=== PATIENT | female | born 1930 | race African-American/Black ===

== ENCOUNTER 2018-08-16 16:53 | Emergency (ER) | payer MEDICARE ==
[~2018-08-16] VITALS: Ht 167.6 cm; Wt 58.1 kg
[2018-08-16 17:00] VITALS: BP 162/70
--- NOTE | 2018-08-16 17:33 | PHYS DOC ---
Adult General Chief Complaint Chief Complaint: MULTIPLE COMPLAINTS HPI HPI Patient is an 88 year old female who presents with several complaints. #1. Continued frequency and urgency. Patient was seen 2 days ago and started on nitrofurantoin for urinary tract infection at an outlying clinic. Patient reports that she is doing a little bit better but continues to have to go frequently. Nothing seems to make this better or worse. #2. Occasional right posterior thigh pain. Patient describes it as achy. No trauma. Patient is able to ambulate. Nothing seems to make it worse. Improves with Tylenol No. 3. Discomfort is mild at worst and nonexistent currently. Patient denies any swelling. Patient reports that her pants as well as her nylons go on without any new difficulties. #3. Dizziness. She describes a rotational dizziness only when she goes to the back door to let in family members. This does not happen with any other exertion , change in position, or head movements. Patient denies any chest pain or palpitations. Patient reports that last just a couple of minutes and goes away. There is no tinnitus, no drainage from the ears. There is no headache. No change in vision. [] Review of Systems Review of Systems Constitutional: Denies fever or chills [] Eyes: Denies change in visual acuity, redness, or eye pain [] HENT: Denies nasal congestion or sore throat [] Respiratory: Denies cough or shortness of breath [] Cardiovascular: No chest pain or palpitations[] GI: Denies abdominal pain, nausea, vomiting, bloody stools or diarrhea [] : See history of present illness[] Musculoskeletal: See history of present illness[] Integument: Denies rash or skin lesions [] Neurologic: Denies headache, focal weakness or sensory changes [] Endocrine: Denies polyuria or polydipsia [] All other systems were reviewed and found to be within normal limits, except as documented in this note. Physical Exam Physical Exam Constitutional: Well developed, well nourished, no acute distress, non-toxic appearance. [] HENT: Normocephalic, atraumatic, bilateral external ears normal, oropharynx moist, no oral exudates, nose normal. [] Eyes: PERRLA, EOMI, conjunctiva normal, no discharge. [] Neck: Normal range of motion, no tenderness, supple, no stridor. [] Cardiovascular:Heart rate regular rhythm, no murmur [] Lungs & Thorax: Bilateral breath sounds clear to auscultation [] Abdomen: Bowel sounds normal, soft, no tenderness, no masses, no pulsatile masses. [] Skin: Warm, dry, no erythema, no rash. [] Back: No tenderness, no CVA tenderness. [] Extremities: No tenderness, no cyanosis, no clubbing, ROM intact, no edema. Patient's right thigh has no tenderness, no spasm, no hip or knee tenderness, and no edema. [] Neurologic: Alert and oriented X 3, normal motor function, normal sensory function, no focal deficits noted. Hallpike maneuvers were performed and were negative either for nystagmus or symptoms.[] Psychologic: Affect normal, judgement normal, mood normal. [] EKG EKG Sinus rhythm, rate 61, normal axis, no ST elevations or depressions.[] Radiology/Procedures Radiology/Procedures [] Impressions: Examination: CT HEAD WO CONTRAST History: DIZZINESS Comparison/Correlation: None Findings: Axial images of the head were obtained without contrast. Atrophy is present. No intracranial hemorrhage, midline shift, or mass effect. Opacification of the left external auditory canal probably is due to cerumen. Degenerative space narrowing of the lower cervical spine. Deformity of the medial finley of maxillary sinuses noted. Correlate with surgical history. No depressed fracture. Impression: No intracranial hemorrhage. Electronically signed by: John Hebert MD (08/16/2018 5:48 PM) [facility] DICTATED AND SIGNED BY: JOHN HEBERT MD DATE: 08/16/18 6182 CC: KARAN VELASCO DO; CURT KAMINSKI Course & Med Decision Making Course & Med Decision Making Pertinent Labs and Imaging studies reviewed. (See chart for details) ED course: Patient arrived, was placed in bed, in tolerated exam well. Patient care endorsed to the oncoming physician at 1800 with labs and imaging studies pending. The patient's head CT is negative for acute findings. The patient's urinalysis is still significant for UTI. She is only had 3 doses of Macrobid. I will give her 1 g of Rocephin in the ED. Creatinine is 1.5. Her labs are significant for a slightly elevated troponin of 0.033 no previous for comparison. She also has a pro BNP of 900. Again had no previous for comparison. Patient denies any chest discomfort. I advised the patient would be best if she was admitted to the hospital for trending of her troponins and further evaluation of her elevated proBNP if warranted. Patient refused admission. She wants to go home. I explained that the risks including heart attack and/or . She stated verbal understanding of these risks. Her family who accompanies her also acknowledged these risks. The patient would still prefer to go home and follow-up labs in the morning. She will be staying with family tonight and will return to emergency room if she develops worsening symptoms or any new symptoms. I have advised she continue her Macrobid as previously prescribed. She will be discharged[] Dragon Disclaimer Dragon Disclaimer This electronic medical record was generated, in whole or in part, using a voice recognition dictation system. Departure Departure: Impression: Primary Impression: UTI (urinary tract infection) Additional Impression: Elevated troponin Disposition: 01 HOME, SELF-CARE Condition: GUARDED Referrals: CURT KAMINSKI (PCP) Patient Instructions: Chest Pain (Nonspecific), [id number] Scripts Tramadol Hcl (TRAMADOL HCL) 50 Mg Tablet 50 MG PO PRN Q6HRS PRN for PAIN, #10 TAB Prov: ALEXANDRA BECKER DO 08/16/18 Problem Qualifiers KARAN VELASCO DO Aug 16, 2018 17:33 ALEXANDRA BECKER DO Aug 16, 2018 18:11
--- NOTE | 2018-08-16 17:53 | RAD ---
Examination: CT HEAD WO CONTRAST History: DIZZINESS Comparison/Correlation: None Findings: Axial images of the head were obtained without contrast. Atrophy is present. No intracranial hemorrhage, midline shift, or mass effect. Opacification of the left external auditory canal probably is due to cerumen. Degenerative space narrowing of the lower cervical spine. Deformity of the medial finley of maxillary sinuses noted. Correlate with surgical history. No depressed fracture. Impression: No intracranial hemorrhage. Electronically signed by: John Bautista MD (08/16/2018 5:48 PM) [facility]
[2018-08-16 17:59] LABS: BILIRUBIN,URINE NEG (NEG); CLARITY,URINE TURBID; COLOR,URINE YELLOW; GLUCOSE,URINE NEG (NEG); NITRITE,URINE POS (NEG); UROBILINOGEN,URINE 0.2 mg/dL (0.2 mg/dL)
[2018-08-16 18:00] LABS: BACTERIA,URINE MANY /HPF (0-FEW); SQUAMOUS EPITHELIAL CELL,UR OCC /LPF; WBC,URINE TNTC /HPF (0-4)
[2018-08-16] MEDS ORDERED: IV NORMAL SALINE 50ML 50 ML ONE (18:21)
[2018-08-16] MEDS ORDERED: cefTRIAXone SODIUM 1 GM VIAL IV ONE (18:21)
[2018-08-16 19:18] LABS: BASO % 1 % (0-3); EOS # 0.1 x10^3/uL (0.0-0.7); EOS % 1 % (0-3); HEMATOCRIT 30.2 % (36.0-47.0); HEMOGLOBIN 9.7 g/dL (12.0-15.5); LYMPH # 0.8 x10^3/uL (1.0-4.8); LYMPH % 16 % (24-48); MEAN CORPUSCULAR HEMOGLOBIN 30 pg (25-35); MEAN CORPUSCULAR HGB CONC 32 g/dL (31-37); MEAN CORPUSCULAR VOLUME 94 fL (79-100); MONO # 0.6 x10^3/uL (0.0-1.1); MONO % 12 % (0-9); NEUT # 3.5 x10^3uL (1.8-7.7); NEUT % 70 % (31-73); PLATELET COUNT 193 x10^3/uL (140-400); RED BLOOD COUNT 3.21 x10^6/uL (3.50-5.40); WHITE BLOOD COUNT 5.1 x10^3/uL (4.0-11.0)
[2018-08-16] MEDS ORDERED: traMADol 50 MG TABLET PO ONE (19:30)
[2018-08-16 19:37] LABS: ALBUMIN 3.5 g/dL (3.4-5.0); ALBUMIN/GLOBULIN RATIO 0.9 (1.0-1.7); CALCIUM 9.2 mg/dL (8.5-10.1); CREATININE 1.5 mg/dL (0.6-1.0); GFR 32.8; MAGNESIUM 2.1 mg/dL (1.8-2.4); POTASSIUM 3.2 mmol/L (3.5-5.1); TOTAL BILIRUBIN 1.2 mg/dL (0.2-1.0); TOTAL PROTEIN 7.3 g/dL (6.4-8.2)
[2018-08-16] MEDS ORDERED: TRAM50TA PO (20:25)
--- NOTE | 2018-08-18 16:01 | EKG ---
[address] [address] Test Date: 2018-08-16 Test Time: 17:47:20 Pat Name: CYNTHIA WRIGHT Department: Room: Gender: F [employer]: MALKA : 1930 Requested By: KARAN VELASCO Order Number: [id number] Reading MD: Measurements Intervals [place] Rate: 61 P: 0 WA: 138 QRS: 49 QRSD: 90 T: 102 QT: 426 QTc: 430 Interpretive Statements SINUS RHYTHM QRS(T) CONTOUR ABNORMALITY CONSIDER ANTEROLATERAL MYOCARDIAL DAMAGE CONSIDER INFERIOR MYOCARDIAL DAMAGE POSSIBLY ABNORMAL ECG RI6.01 Unconfirmed report No previous ECG available for comparison
== END 2018-08-16 20:35 | disposition home or self-care (01) ==
LOC: ER 16:53
DX: N39.0 Urinary tract infection, site not specified (principal); R79.89 Other specified abnormal findings of blood chemistry; R42 Dizziness and giddiness; M79.651 Pain in right thigh
CPT/HCPCS: 36415; 70450; 80053; 81001; 83735; 83880; 84484; 85025; 85610; 87086; 93005; 96365; 99284; J0696

== ENCOUNTER 2018-08-21 11:04 | Inpatient (IN) | payer MEDICARE ==
[~2018-08-21] VITALS: Ht 167.6 cm; Wt 56.8 kg
[~2018-08-21 11:04] MED LIST: TRAM50TA PO
[2018-08-21] MEDS ORDERED: POTASSIUM CL 40MEQ IN 0.9%NACL 1,000 ML IV ONE (11:30)
[2018-08-21] MEDS ORDERED: IV NORMAL SALINE 1,000ML 1,000 ML IV ONE (11:30)
--- NOTE | 2018-08-21 12:03 | PHYS DOC ---
Past History Past Medical History: Hypertension Past Surgical History: No Surgical History Alcohol Use: None Drug Use: None Adult General Chief Complaint Chief Complaint: SYNCOPE HPI HPI 88-year-old female presents with syncopal episode. The patient had a short syncopal episode at home today when she was getting ready to go to her doctor's appointment for follow-up of UTI from last week. She was a bit wobbly walking across the house and her son stepped up to support her. She had a short episode of syncope that lasted less than 5 seconds. She had an additional syncopal episode at her physician's office today. She did [id number] blood work that showed a creatinine of 1.5 and a potassium of 2.7. The patient was recently in this emergency for UTI symptoms and dizziness. She refused to be admitted at that time. Patient has not had fever or chills at home. Review of Systems Review of Systems Constitutional: Denies fever or chills [] Eyes: Denies change in visual acuity, redness, or eye pain [] HENT: Denies nasal congestion or sore throat [] Respiratory: Denies cough or shortness of breath [] Cardiovascular: No additional information not addressed in HPI [] GI: Denies abdominal pain, nausea, vomiting, bloody stools or diarrhea [] : Denies dysuria or hematuria [] Musculoskeletal: Denies back pain or joint pain [] Integument: Denies rash or skin lesions [] Neurologic: Denies headache, focal weakness or sensory changes. Syncope[] Endocrine: Denies polyuria or polydipsia [] All other systems were reviewed and found to be within normal limits, except as documented in this note. Current Medications Current Medications Current Medications Medications (Trade) Dose Ordered Sig/Pricilla Start Time Stop Time Status Last Admin Dose Admin Potassium Chloride/Sodium Chloride 1,000 ml @ 200 mls/hr 1X ONCE 08/21/18 11:30 08/21/18 16:29 Sodium Chloride 1,000 ml @ 1,000 mls/hr 1X ONCE 08/21/18 11:30 08/21/18 12:29 Allergies Allergies Allergies Coded Allergies Type Severity Reaction Last Updated Verified No Known Drug Allergies 08/16/18 No Physical Exam Physical Exam Constitutional: Well developed, well nourished, no acute distress, non-toxic appearance. [] HENT: Normocephalic, atraumatic, bilateral external ears normal, oropharynx moist, no oral exudates, nose normal. [] Eyes: PERRLA, EOMI, conjunctiva normal, no discharge. [] Neck: Normal range of motion, no tenderness, supple, no stridor. [] Cardiovascular:Heart rate regular rhythm, no murmur [] Lungs & Thorax: Bilateral breath sounds clear to auscultation [] Abdomen: Bowel sounds normal, soft, no tenderness, no masses, no pulsatile masses. [] Skin: Warm, dry, no erythema, no rash. [] Back: No tenderness, no CVA tenderness. [] Extremities: No tenderness, no cyanosis, no clubbing, ROM intact, no edema. [] Neurologic: Alert and oriented X 3, normal motor function, normal sensory function, no focal deficits noted. [] Psychologic: Affect normal, judgement normal, mood normal. [] Current Patient Data Vital Signs Vital Signs Date Time Temp Pulse Resp B/P (MAP) Pulse Ox O2 Delivery O2 Flow Rate FiO2 08/21/18 11:25 97.5 62 16 100 Room Air EKG EKG Sinus rhythm, rate 62, normal axis, no ST elevations or depressions, flattened T waves.[] Radiology/Procedures Radiology/Procedures [] Impressions: CT HEAD INDICATION: Dizziness COMPARISON: 08/16/2018 Exposure: One or more of the following individualized dose reduction techniques were utilized for this examination: 1. Automated exposure control 2. Adjustment of the mA and/or kV according to patient size 3. Use of iterative reconstruction technique TECHNIQUE: 5 mm contiguous axial images were obtained from the skull base to the vertex in both bone and soft tissue algorithm. FINDINGS: No abnormal attenuation within the brain parenchyma. No evidence of acute intracranial hemorrhage. No extra-axial fluid collections. No mass effect or midline shift. Ventricular size is appropriate. Basal cisterns are patent. No fractures identified.Lawler-white differentiation is preserved.Globes and orbits are within normal limits. Paranasal sinuses and mastoid air cells are clear. IMPRESSION: No acute intracranial findings. Electronically signed by: Wayne Silva MD (08/21/2018 12:04 PM) [facility] DICTATED AND SIGNED BY: WAYNE SILVA MD DATE: 08/21/18 1201 CC: ALEXANDRA BECKER DO; ADE MARTINEZ MD Examination: CHEST AP ONLY History: SYNCOPE, DIZZINESS Comparison/Correlation: None Findings: AP view of the chest was provided. Heart size and pulmonary vasculature are normal. No infiltrate or effusion. Calcified granulomas involve the right upper lung field. No pneumothorax. Levo convexity of the lower thoracic spine noted. Impression: No infiltrate. Electronically signed by: John Hebert MD (08/21/2018 12:18 PM) [id number] DICTATED AND SIGNED BY: JOHN HEBERT MD DATE: 08/21/18 1217 CC: ALEXANDRA BECKER DO; ADE MARTINEZ MD Course & Med Decision Making Course & Med Decision Making Pertinent Labs and Imaging studies reviewed. (See chart for details) The patient's labs are unremarkable except for an elevated creatinine 1.4. Her potassium here was normal at 3.8. Her head CT is unremarkable. Her blood pressure has been stable the ED. Her EKG is unremarkable. I discussed the patient with the hospitalist, Dr. Rogers and he is agreed to admit the patient for further syncopal workup. The patient was reluctant, but agreed to admission. [] Dragon Disclaimer Dragon Disclaimer This electronic medical record was generated, in whole or in part, using a voice recognition dictation system. Departure Departure: Impression: Primary Impression: Syncope Disposition: 09 ADMITTED INPATIENT Admitting Physician: Joanne Rogers Referrals: ADE MARTINEZ MD (PCP) Problem Qualifiers Primary Impression: Syncope Syncope type: unspecified Qualified Codes: R55 - Syncope and collapse ALEXANDRA BECKER DO Aug 21, 2018 12:03
[2018-08-21 12:04] LABS: BASO # 0.1 x10^3/uL (0.0-0.2); BASO % 2 % (0-3); EOS % 1 % (0-3); HEMATOCRIT 33.4 % (36.0-47.0); HEMOGLOBIN 10.8 g/dL (12.0-15.5); LYMPH # 0.5 x10^3/uL (1.0-4.8); LYMPH % 11 % (24-48); MEAN CORPUSCULAR HEMOGLOBIN 30 pg (25-35); MEAN CORPUSCULAR HGB CONC 32 g/dL (31-37); MEAN CORPUSCULAR VOLUME 93 fL (79-100); MONO # 0.5 x10^3/uL (0.0-1.1); MONO % 11 % (0-9); NEUT # 3.4 x10^3uL (1.8-7.7); NEUT % 75 % (31-73); PLATELET COUNT 264 x10^3/uL (140-400); RED BLOOD COUNT 3.58 x10^6/uL (3.50-5.40); RED CELL DISTRIBUTION WIDTH 14.7 % (11.5-14.5); WHITE BLOOD COUNT 4.5 x10^3/uL (4.0-11.0)
--- NOTE | 2018-08-21 12:08 | RAD ---
CT HEAD INDICATION: Dizziness COMPARISON: 08/16/2018 Exposure: One or more of the following individualized dose reduction techniques were utilized for this examination: 1. Automated exposure control 2. Adjustment of the mA and/or kV according to patient size 3. Use of iterative reconstruction technique TECHNIQUE: 5 mm contiguous axial images were obtained from the skull base to the vertex in both bone and soft tissue algorithm. FINDINGS: No abnormal attenuation within the brain parenchyma. No evidence of acute intracranial hemorrhage. No extra-axial fluid collections. No mass effect or midline shift. Ventricular size is appropriate. Basal cisterns are patent. No fractures identified.Lawler-white differentiation is preserved.Globes and orbits are within normal limits. Paranasal sinuses and mastoid air cells are clear. IMPRESSION: No acute intracranial findings. Electronically signed by: Wayne Silva MD (08/21/2018 12:04 PM) [place] [id number]
[2018-08-21 12:16] LABS: ALBUMIN 3.8 g/dL (3.4-5.0); CALCIUM 9.7 mg/dL (8.5-10.1); CREATININE 1.4 mg/dL (0.6-1.0); MAGNESIUM 2.4 mg/dL (1.8-2.4); POTASSIUM 3.8 mmol/L (3.5-5.1); TOTAL BILIRUBIN 0.6 mg/dL (0.2-1.0); TOTAL PROTEIN 7.8 g/dL (6.4-8.2)
--- NOTE | 2018-08-21 12:23 | RAD ---
Examination: CHEST AP ONLY History: SYNCOPE, DIZZINESS Comparison/Correlation: None Findings: AP view of the chest was provided. Heart size and pulmonary vasculature are normal. No infiltrate or effusion. Calcified granulomas involve the right upper lung field. No pneumothorax. Levo convexity of the lower thoracic spine noted. Impression: No infiltrate. Electronically signed by: John Bautista MD (08/21/2018 12:18 PM) [id number]
[2018-08-21 13:21] LABS: CLARITY,URINE HAZY; COLOR,URINE ORANGE
[2018-08-21 13:22] LABS: BILIRUBIN,URINE NEG (NEG)
[2018-08-21 13:24] LABS: BACTERIA,URINE FEW /HPF (0-FEW); SQUAMOUS EPITHELIAL CELL,UR FEW /LPF
[2018-08-21 15:34] VITALS: BP 181/73
[2018-08-21 16:34] LABS: CREATININE 1.2 mg/dL (0.6-1.0); GFR 51.4; POTASSIUM 3.1 mmol/L (3.5-5.1)
[2018-08-21] MEDS ORDERED: IV NORMAL SALINE 1,000ML 1,000 ML IV SCH (16:45)
[2018-08-21] MEDS ORDERED: POTASSIUM CHLORIDE 20 MEQ TABLET.ER. PO ONE (17:15)
[2018-08-21] MEDS ORDERED: DONE5TAB7 PO (18:12)
[2018-08-21] MEDS ORDERED: LOSA1TAB19 PO (18:12)
[2018-08-21] MEDS ORDERED: DIAZ5TAB4 PO (18:12)
[2018-08-21] MEDS ORDERED: PRAV10TA2 PO (18:12)
[2018-08-21] MEDS: POTASSIUM CL 20MEQ D5-0.45NACL 1,000 ML IV SCH (18:57)
[2018-08-21 20:40] VITALS: BP 144/82
[2018-08-21] MEDS ORDERED: PRAVASTATIN 20 MG TABLET. PO SCH (21:00)
[2018-08-21 23:09] VITALS: BP 138/68
[2018-08-22 05:45] VITALS: BP 169/90
[2018-08-22 05:46] VITALS: BP 167/82
[2018-08-22 05:47] VITALS: BP 149/86
[2018-08-22 06:45] LABS: BASO % 1 % (0-3); EOS # 0.1 x10^3/uL (0.0-0.7); EOS % 3 % (0-3); HEMATOCRIT 29.6 % (36.0-47.0); HEMOGLOBIN 9.5 g/dL (12.0-15.5); LYMPH # 0.8 x10^3/uL (1.0-4.8); LYMPH % 23 % (24-48); MEAN CORPUSCULAR HEMOGLOBIN 30 pg (25-35); MEAN CORPUSCULAR HGB CONC 32 g/dL (31-37); MEAN CORPUSCULAR VOLUME 92 fL (79-100); MONO # 0.4 x10^3/uL (0.0-1.1); MONO % 11 % (0-9); NEUT # 2.2 x10^3uL (1.8-7.7); NEUT % 63 % (31-73); PLATELET COUNT 257 x10^3/uL (140-400); RED BLOOD COUNT 3.21 x10^6/uL (3.50-5.40); WHITE BLOOD COUNT 3.5 x10^3/uL (4.0-11.0)
[2018-08-22 06:54] LABS: ALBUMIN/GLOBULIN RATIO 0.8 (1.0-1.7); CALCIUM 8.6 mg/dL (8.5-10.1); CREATININE 1.1 mg/dL (0.6-1.0); GFR 56.9; POTASSIUM 3.8 mmol/L (3.5-5.1); TOTAL BILIRUBIN 0.5 mg/dL (0.2-1.0); TOTAL PROTEIN 6.6 g/dL (6.4-8.2)
[2018-08-22] MEDS: POTASSIUM CL 20MEQ D5-0.45NACL 1,000 ML IV SCH (08:39)
--- NOTE | 2018-08-22 08:57 | RAD ---
Exam : Carotid Duplex with Grayscale Ultrasound and Spectral and Color Doppler Analysis 08/22/2018 8:51 AM Clinical Indications: Syncope Comparison study: None available. PQRS Compliance Statement - Stenosis calculations for CT, MR and conventional angiography are based upon measurement of the distal ICA diameter in accordance with the NASCET methodology. Stenosis calculations for carotid ultrasound studies are derived from validated velocity criteria which are known to correlate with the NASCET methodology. Findings: The common, internal and external carotid arteries were examined by grayscale, color and spectral Doppler ultrasound. There is mild diffuse atherosclerotic vascular disease, which is most prominent in the left carotid bulb. No high-grade visual stenosis is identified on color Doppler imaging with spectral analysis. The following are the velocities and ratios in the carotid arteries on both sides: RIGHT ICA PV: 71cm/sec RIGHT CCA PV: 52cm/sec RIGHT ICA ED: 19cm/sec RIGHT IC/CCPV: Less than 2 RIGHT VERTEBRAL: antegrade flow LEFT ICA PV: 88cm/sec LEFT CCA PV: 66cm/sec LEFT ICA ED: 26cm/sec LEFT IC/CCPV: Less than 2 LEFT VERTEBRAL: antegrade flow <50% ICA Stenosis: PSV < 125cm/s (EDV < 40cm/s; SVR < 2.0) 50-69% ICA Stenosis: PSV < 125-229cm/s (EDV 40-99cm/s; SVR 2.0-3.9) >70% ICA Stenosis: PSV > 230cm/s (EDV >100cm/s; SVR >4.0) Impression: Mild diffuse atherosclerotic vascular disease less than 50 percent stenosis of the bilateral internal carotid arteries by ultrasound criterion Electronically signed by: Dar Carroll MD (08/22/2018 8:52 AM) [id number]
--- NOTE | 2018-08-22 09:26 | PDOC2 ---
CLEOPATRA PINEDA [employer] 08/22/18 0926: CONSULT Date of Admission DATE: 08/22/18 TIME: 09:10 Reason for Consult: SYNCOPE Problem List Problems Medical Problems: (1) Syncope Status: Acute History of Present Illness Ms Diop is an 88-year-old female who presented to the ED with complaints of a syncopal episode. She complains of dizziness only when up exerting. Yesteday she was apparenlty being walked to the back door by son when she complained of dizziness and slumped forward. Son caught her and lowered her to ground when she was aware in just 5 seconds or so. She deines cp, daypnea, palpitations, lighehaededness. She apparently had a similar episode in the PCP office so sent for direct admission. She reports episodes of dizziness occuring off and on over the last few months. Currently she reports being symptoms free and he son reports she would like to go home. Cardiovascular: HTN Psych: Anxiety Rheumatologic: Rheumatoid arthritis Past Surgical History no history Family History non contributory due to age Social History no significant ETOH, no illicit drugs Current Medications Current Medications Sodium Chloride 1,000 ml @ 1,000 mls/hr 1X ONCE IV Last administered on at 12:13; Start 08/21/18 at 11:30; Stop 08/21/18 at 12:30; Status DC Potassium Chloride/Sodium Chloride 1,000 ml @ 200 mls/hr 1X ONCE IV Last administered on 08/21/18at 12:12; Start 08/21/18 at 11:30; Stop 08/21/18 at 16:29 ; Status DC Sodium Chloride 1,000 ml @ 75 mls/hr [id number] IV ; Start 08/21/18 at 16:45; Stop 08/21/18 at 17:56; Status DC Potassium Chloride (Klor-Con) 40 meq 1X ONCE PO Last administered on at 18:56; Start 08/21/18 at 17:15; Stop 08/21/18 at 17:16; Status DC Potassium Chloride/Dextrose/ Sod Cl 1,000 ml @ 80 mls/hr [id number] IV Last administered on 08/22/18at 08:39; Start 08/21/18 at 18:00 Pravastatin Sodium (Pravachol) 10 mg QHS PO Last administered on 08/21/18at 21: 32; Start 08/21/18 at 21:00 Active Scripts Active Reported Pravastatin Sodium 10 Mg Tablet 1 Tab PO QHS Donepezil Hcl 5 Mg Tablet 1 Tab PO HS Losartan-Hctz 50-12.5 Mg Tab (Losartan/Hydrochlorothiazide) 1 Each Tablet 1 Tab PO DAILY Diazepam 5 Mg Tablet 5 Mg PO BID PRN Allergies: Coded Allergies: No Known Drug Allergies (Unverified , 08/16/18) Review of System as per HPI VITALS Vital Signs Date Time Temp Pulse Resp B/P (MAP) Pulse Ox O2 Delivery O2 Flow Rate FiO2 08/22/18 05:47 65 149/86 (107) 08/22/18 05:45 98.4 18 98 Room Air Labs Laboratory Tests Test 08/21/18 11:40 08/21/18 12:55 08/21/18 14:50 08/22/18 06:28 White Blood Count 4.5 x10^3/uL (4.0-11.0) 3.5 x10^3/uL (4.0-11.0) Red Blood Count 3.58 x10^6/uL (3.50-5.40) 3.21 x10^6/uL (3.50-5.40) Hemoglobin 10.8 g/dL (12.0-15.5) 9.5 g/dL (12.0-15.5) Hematocrit 33.4 % (36.0-47.0) 29.6 % (36.0-47.0) Mean Corpuscular Volume 93 fL (79-100) 92 fL (79-100) Mean Corpuscular Hemoglobin 30 pg (25-35) 30 pg (25-35) Mean Corpuscular Hemoglobin Concent 32 g/dL (31-37) 32 g/dL (31-37) Red Cell Distribution Width 14.7 % (11.5-14.5) 15.0 % (11.5-14.5) Platelet Count 264 x10^3/uL (140-400) 257 x10^3/uL (140-400) Neutrophils (%) (Auto) 75 % (31-73) 63 % (31-73) Lymphocytes (%) (Auto) 11 % (24-48) 23 % (24-48) Monocytes (%) (Auto) 11 % (0-9) 11 % (0-9) Eosinophils (%) (Auto) 1 % (0-3) 3 % (0-3) Basophils (%) (Auto) 2 % (0-3) 1 % (0-3) Neutrophils # (Auto) 3.4 x10^3uL (1.8-7.7) 2.2 x10^3uL (1.8-7.7) Lymphocytes # (Auto) 0.5 x10^3/uL (1.0-4.8) 0.8 x10^3/uL (1.0-4.8) Monocytes # (Auto) 0.5 x10^3/uL (0.0-1.1) 0.4 x10^3/uL (0.0-1.1) Eosinophils # (Auto) 0.0 x10^3/uL (0.0-0.7) 0.1 x10^3/uL (0.0-0.7) Basophils # (Auto) 0.1 x10^3/uL (0.0-0.2) 0.0 x10^3/uL (0.0-0.2) Sodium Level 139 mmol/L (136-145) 141 mmol/L (136-145) 140 mmol/L (136-145) Potassium Level 3.8 mmol/L (3.5-5.1) 3.1 mmol/L (3.5-5.1) 3.8 mmol/L (3.5-5.1) Chloride Level 100 mmol/L (98-107) 103 mmol/L (98-107) 106 mmol/L (98-107) Carbon Dioxide Level 28 mmol/L (21-32) 28 mmol/L (21-32) 26 mmol/L (21-32) Anion Gap 11 (6-14) 10 (6-14) 8 (6-14) Blood Urea Nitrogen 38 mg/dL (7-20) 35 mg/dL (7-20) 26 mg/dL (7-20) Creatinine 1.4 mg/dL (0.6-1.0) 1.2 mg/dL (0.6-1.0) 1.1 mg/dL (0.6-1.0) Estimated GFR (Cockcroft-Gault) 43.0 51.4 56.9 BUN/Creatinine Ratio 27 (6-20) 24 (6-20) Glucose Level 119 mg/dL (70-99) 92 mg/dL (70-99) 101 mg/dL (70-99) Calcium Level 9.7 mg/dL (8.5-10.1) 9.0 mg/dL (8.5-10.1) 8.6 mg/dL (8.5-10.1) Magnesium Level 2.4 mg/dL (1.8-2.4) Total Bilirubin 0.6 mg/dL (0.2-1.0) 0.5 mg/dL (0.2-1.0) Aspartate Amino Transf (AST/SGOT) 27 U/L (15-37) 19 U/L (15-37) Alanine Aminotransferase (ALT/SGPT) 19 U/L (14-59) 16 U/L (14-59) Alkaline Phosphatase 58 U/L (46-116) 48 U/L (46-116) Troponin I Quantitative 0.046 ng/mL (0-0.055) Total Protein 7.8 g/dL (6.4-8.2) 6.6 g/dL (6.4-8.2) Albumin 3.8 g/dL (3.4-5.0) 3.0 g/dL (3.4-5.0) Albumin/Globulin Ratio 1.0 (1.0-1.7) 0.8 (1.0-1.7) Urine Collection Type Unknown Urine Color [place] Urine Clarity Hazy Urine pH 6.0 Urine Specific [place] <=1.005 Urine Protein (NEG-TRACE) Urine Glucose (UA) mg/dL (NEG) Urine Ketones (Stick) mg/dL (NEG) Urine Blood (NEG) Urine Nitrite (NEG) Urine Bilirubin Neg (NEG) Urine Urobilinogen Dipstick mg/dL (0.2 mg/dL) Urine Leukocyte Esterase (NEG) Urine RBC 3-5 /HPF (0-2) Urine WBC 11-20 /HPF (0-4) Urine Squamous Epithelial Cells Few /LPF Urine Bacteria Few /HPF (0-FEW) Images CT head - IMPRESSION: No acute intracranial findings. CXR - Impression: No infiltrate. Carotid duplex - Impression: Mild diffuse atherosclerotic vascular disease less than 50 percent stenosis of the bilateral internal carotid arteries by ultrasound criterion Assessment/Plan 1. Syncope - no significant carotid disease, antegrade vertebral flow, mild orthostasis but standing pressure currently 140s systolic. No arrhythmias on tele. await echo and suggest outpatient event monitoring. as symptoms occur only with exertion but not affected by position change, suggest 6 min walk for chronotropic response. 2. Bradycardia - check for chronotropic response 3. acute renal insufficiency - ARB, HCTZ on hold. Cr improved. 4. UTI - per PCP ANDIE MILLER MD 08/22/18 1725: CONSULT Assessment/Plan Patient seen and examined. Agree with above nurse practitioner note. 88-year-old woman with near syncope. She had significant desaturation with ambulation. No obvious etiology has been determined thus far. We will plan for a CT scan of the chest given that her d-dimer has been elevated. Echocardiogram at baseline does not reveal any significant cardiac pathology. Consider outpatient event monitor if CT scan is nonrevealing. Further evaluation of hypoxia per primary service. CLEOPATRA PINEDA APRN Aug 22, 2018 09:26 ANDIE MILLER MD Aug 22, 2018 17:25
[2018-08-22 10:40] VITALS: BP 145/66
--- NOTE | 2018-08-22 13:24 | HP ---
ADMIT DATE: 08/21/2018 HISTORY OF PRESENT ILLNESS: The patient is an 88-year-old -Cypriot female patient who was brought to the Emergency Room. She presented with multiple syncopal episodes. She initially has one when she was getting ready to go to her doctor's appointment for followup of her UTI that was treated last week. She was a bit wobbly walking across the house and her son stepped up to support her. She had a short episode of syncope that lasted less than 5 seconds. She had an additional episode while at her physician's office today. She did tlfhj-hv-fece blood work that showed her creatinine of 1.5 and a potassium was low at 2.7. She was actually recently seen at the Emergency Room, [facility] for UTI symptoms and dizziness. At that time, she refused to be admitted; however, she denied any fever, chills, or rigors. She was extensively investigated in the Emergency Room. She was found to be dehydrated; however, she has no leukocytosis. Urinalysis showed that she has 11-20 wbc's, but very few bacteria, negative for nitrites. Her CT scan of the head was unremarkable and showed no acute intracranial finding and her chest x-ray was also unremarkable and showed no infiltrate. She was admitted on a monitor bed and we did consult the cardiology team to assist in her management. PAST MEDICAL HISTORY: Significant for hypertension. She does not have any other medical problem. PAST SURGICAL HISTORY: Unremarkable. ALLERGIES: She has no known drug allergies. MEDICATIONS: She is currently on following medications. She is on Aricept 5 mg at bedtime, pravastatin 10 mg at bedtime, losartan/hydrochlorothiazide 50/12.5 mg once a day, and diazepam 5 mg twice a day. FAMILY HISTORY: Unremarkable. SOCIAL HISTORY: She is and lives with her . She has 1 son. She does not smoke, drink alcohol, or use recreational drugs. REVIEW OF SYSTEMS: As per history of present illness. PHYSICAL EXAMINATION: GENERAL: When arrival to the Emergency Room, she looked well and was clearly in no apparent respiratory distress. No pallor, jaundice, cyanosis, or thyromegaly. No jugular venous distension. No lower limb edema. VITAL SIGNS: Her heart rate was 60, blood pressure was 138/68, temperature was 98.3, respiratory rate 20, and oxygen saturation was 98%. HEAD, EYES, EARS, NOSE, AND THROAT: Showed normocephalic, atraumatic. NECK: Supple. HEART: Showed normal first and second heart sounds. No gallop, rub, or murmur. CHEST: Clear to auscultation. No crepitation or rhonchi. ABDOMEN: Distended, soft, nontender. NEUROLOGIC: She was awake, alert, responding appropriately. All cranial nerves are intact. She moves extremities without difficulty. She normally ambulates without assistance or assistive devices. LABORATORY DATA AND IMAGING: While in the Emergency Room, her lab work showed a white cell count 4500, hemoglobin 11, hematocrit 33, MCV 93, and platelet count 264,000 with normal manual differential. Her chemistry showed a serum sodium 139, potassium 3.8, chloride 100, bicarbonate 28, anion gap of 11, BUN 38, creatinine 1.4, estimated GFR was 43 mL per minute. Her glucose was 119, calcium was 9.7, magnesium was 2.4. Total bilirubin, AST, ALT, alkaline phosphatase were normal. Her total protein was 7.8, albumin 3.8. Urinalysis showed the urine was orange, hazy with a pH of 6, specific gravity 1.005. The urine was negative for protein, glucose, ketones, blood, and nitrite, negative for leukocyte esterase. There are 3-5 rbc's, 11-20 wbc's, very few bacteria. She did have a CT scan of the head, which basically showed no abnormal attenuation within the brain parenchyma, no evidence of acute intracranial hemorrhage, no extraaxial fluid collection, no mass effect or midline shift, ventricular size is appropriate. Basal cisterns are patent. No fracture is identified. Lawler-white differentiation is preserved. Globes and orbits are within normal limits. Paranasal sinuses and mastoid air cells are clear. Her chest x-ray showed the heart size and pulmonary vasculature are normal. No infiltrate or effusion. Calcific granulomas involve the right upper lung field. No pneumothorax. Level of complexity of the lower thoracic spine noted. IMPRESSION AND PLAN: In summary, this is an 88-year-old old -Cypriot female patient who was admitted with recurrent syncopal episode. We will arrange for her to have carotid Doppler ultrasound and echocardiogram. We will consult Cardiology team. We will also arrange for her to have orthostatics and we will decide on further management accordingly. LA CORLEY MD DR: Gonzalez JOB#: [id number] / [id number]
[2018-08-22 15:45] VITALS: BP 158/76
--- NOTE | 2018-08-22 16:31 | CARD ---
MR#: [id number] Date of Study: 08/22/2018 Ordering Physician: LA CORLEY, Referring Physician: LA CORLEY Tech: Jodi No RDCS APPROVED REPORT EXAM: Two-dimensional and M-mode echocardiogram with Doppler and color Doppler. Other Information Quality : Good INDICATION Valvular Disease 2D DIMENSIONS RVDd2.3 (2.9-3.5cm)Left Atrium(2D)3.7 (1.6-4.0cm) IVSd1.0 (0.7-1.1cm)Aortic Root(2D)2.5 (2.0-3.7cm) LVDd4.5 (3.9-5.9cm)LVOT Diameter1.9 (1.8-2.4cm) PWd1.2 (0.7-1.1cm)LVDs3.0 (2.5-4.0cm) FS (%) 33.5 %SV58.3 ml Aortic Valve AoV Peak Dane.133.6cm/Ace Peak GR.7.1mmHg LVOT Peak Dane.120.2cm/sAVA (VMAX)2.49cm2 Mitral Valve MV E Sakzrxcm08.0cm/sMV DECEL YMIC502vt MV A Qcjedzfe65.7cm/sE/A Ratio0.9 Tricuspid Valve TR P. Bkperica832md/sRAP CZRUFMPF1yvRj TR Peak Gr.85nwGhNUJU54deLe Pulmonary Vein S1 Yymlvzxm88.1cm/sD2 Eewsbfys47.9cm/s LEFT VENTRICLE The left ventricle is normal size. There is normal left ventricular wall thickness. The left ventricu lar systolic function is normal and the ejection fraction is within normal range. The Ejection Fracti on is 55-60%. There is normal LV segmental wall motion. Transmitral Doppler flow pattern is Grade I-a bnormal relaxation pattern. RIGHT VENTRICLE The right ventricle is normal size. The right ventricular systolic function is normal. ATRIA The left atrium size is normal. The right atrium size is normal. The interatrial septum is intact wit h no evidence for an atrial septal defect or patent foramen ovale as noted on 2-D or Doppler imaging. AORTIC VALVE The aortic valve is calcified but opens well. Doppler and Color Flow revealed no significant aortic r egurgitation. There is no significant aortic valvular stenosis. MITRAL VALVE The mitral valve is calcified but opens well. There is no evidence of mitral valve prolapse. There is no mitral valve stenosis. Doppler and Color-flow revealed trace mitral regurgitation. TRICUSPID VALVE The tricuspid valve is normal in structure and function. Doppler and Color Flow revealed mild tricusp id regurgitation. There is moderate pulmonary hypertension. The PA pressure was estimated at 41 mmHg. There is no tricuspid valve stenosis. PULMONIC VALVE The pulmonary valve is normal in structure and function. Doppler and Color Flow revealed mild pulmoni c valvular regurgitation. There is no pulmonic valvular stenosis. GREAT VESSELS The aortic root is normal in size. The ascending aorta is normal in size. The IVC is normal in size a nd collapses >50% with inspiration. PERICARDIAL EFFUSION There is no evidence of significant pericardial effusion. Critical Notification Critical Value: No <Conclusion> The left ventricle is normal size. The left ventricular systolic function is normal and the ejection fraction is within normal range. The Ejection Fraction is 55-60%. There is no significant aortic valvular stenosis. Doppler and Color Flow revealed no significant aortic regurgitation. Doppler and Color-flow revealed trace mitral regurgitation. Doppler and Color Flow revealed mild tricuspid regurgitation. There is moderate pulmonary hypertension. The PA pressure was estimated at 41 mmHg. Signed by : Alphonso Lerner MD Electronically Approved : 08/22/2018 16:30:19
[2018-08-22] MEDS ORDERED: AMLO5TAB7 PO (19:05)
--- NOTE | 2018-08-24 06:57 | EKG ---
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
== END 2018-08-22 19:15 | disposition home or self-care (01) | DRG 314 ==
LOC: ER 11:04 → 1 SOUTH 14:15
PROVIDERS: ADMIT Internal Medicine; ATTEND Internal Medicine
DX: I95.9 Hypotension, unspecified (principal); N17.0 Acute kidney failure with tubular necrosis; N39.0 Urinary tract infection, site not specified; E86.0 Dehydration; I10 Essential (primary) hypertension; F41.9 Anxiety disorder, unspecified; M06.9 Rheumatoid arthritis, unspecified; R09.02 Hypoxemia
CPT/HCPCS: 36415; 70450; 71045; 80048; 80053; 81001; 83735; 83880; 84484; 85025; 85379; 87086; 93005; 93306; 93880; 94618; 96360; 96361; 99285-25; J7030

== ENCOUNTER → 2020-07-27 | Outpatient (CLI) | payer MEDICARE ==
[~2020-07-27] MED LIST changes: +AMLO-186 PO; +DIAZ5TAB4 PO; +DONE5TAB7 PO; +LOSA1TAB19 PO; +PRAV10TA2 PO
--- NOTE | 2020-07-28 00:15 | RAD ---
Study: XR LUMBAR SPINE 2-3V Indication: Right leg pain. Comparison: None. Findings: Minimal lumbar dextrocurvature with the apex at L3. Lumbar lordosis is maintained. Grade 1 anterolist hesis of L4 on L5. Mild scattered disc space narrowing. Age-indeterminate mild superior endplate height loss at L2. Mult ilevel facet degeneration. Aortobiiliac calcific atherosclerosis. Osteopenia. Scattered pelvic phleboliths. Impression: 1. Mild superior endplate height loss at L2 which could be chronic but recommend correlation for pinp oint tenderness. 2. Mild disc space narrowing and multilevel facet degeneration. Grade 1 anterolisthesis of L4 on L5 o n a degenerative basis. 3. Osteopenia. Electronically signed by: AISHA PINEDA MD (07/28/2020 12:12 AM) [facility]
== END ==
LOC: RAD 16:26
PROVIDERS: ATTEND Specialist
DX: M47.816 Spondylosis without myelopathy or radiculopathy, lumbar region (principal); M43.16 Spondylolisthesis, lumbar region; I87.8 Other specified disorders of veins; M85.88 Other specified disorders of bone density and structure, other site
CPT/HCPCS: 72100

== ENCOUNTER → 2021-01-06 | Outpatient (CLI) | payer MEDICARE ==
--- NOTE | 2021-01-06 16:37 | RAD ---
DATE: 01/06/2021 EXAM: DIGITAL DIAGNOSTIC BILATERAL, BREAST BILATERAL HISTORY: Right breast lump COMPARISON: None This study was interpreted with the benefit of Computerized Aided Detection (CAD). Breast Density: DENSE The breast parenchyma is dense, which could reduce the sensitivity of mammography. Breast parenchyma level density D. FINDINGS: The mammogram is extremely limited due to difficulty with patient positioning, small breast size, and the presence of numerous skin moles. Limited CC and LM views of the right breast were obtained and LM view only of the left breast was obtained. The fire control technician made multiple attempts for better images but this was the best possible imaging. Right breast: There is a large masslike area in the retroareolar region measuring at least 3.9 x 3.0 cm. There is some distortion of the surrounding breast tissue. The breast is very nodular in appearance. There are some calcifications within the mass. Left breast: Limited single view of the left breast demonstrates multiple nodular densities in the inferior breast. These may correspond with moles. There are scattered calcifications. There is diffusely increased breast density which may be technical and due to limitations in the exam. ULTRASOUND: Right breast: The right breast was scanned in the area of palpable concern. There is a large shadowing heterogeneous mass just deep to the skin at 7:00 in the periareolar region of the right breast measuring 3.6 x 3.8 x 1.8 cm. This has irregular borders and multiple echogenic foci consistent with calcifications. The mass is reportedly nonmobile and hard. The breast is difficult to penetrate. No axillary lymphadenopathy. Left breast: The inferior left breast was scanned from 5:00 to 7:00. There is normal fibroglandular tissue. No mass or cyst. Findings on mammogram may correspond with skin moles. IMPRESSION: 1. 3.8 cm mass in the right breast suspicious for malignancy. 2. Technically very limited mammogram due to patient immobility and the presence of multiple skin moles. Additional suspicious masses or other abnormalities could be missed in either breast. A message regarding findings and recommendations with a callback number were left for Dr. Rafael Levy at 4:30 PM on 01/06/2021. BI-RADS CATEGORY: 5 HIGHLY SUGGESTIVE MALIGNANCY RECOMMENDED FOLLOW-UP: BIO BIOPSY RECOMMENDED PQRS compliance statement: Patient information was entered into a reminder system with a target due date for the next mammogram. Mammography is a sensitive method for finding small breast cancers, but it does not detect them all and is not a substitute for careful clinical examination. A negative mammogram does not negate a clinically suspicious finding and should not result in delay in biopsying a clinically suspicious abnormality. "Our facility is accredited by the [employer] Mammography Program."
== END ==
LOC: MAMMO 13:33 → EDBD 13:33
PROVIDERS: ATTEND Specialist
DX: N63.20 Unspecified lump in the left breast, unspecified quadrant (principal); N63.10 Unspecified lump in the right breast, unspecified quadrant
CPT/HCPCS: 76641; 77066

== ENCOUNTER 2021-01-13 18:22 | Inpatient (IN) | payer MEDICARE ==
[~2021-01-13] VITALS: Ht 152.4 cm; Wt 43.7 kg
--- NOTE | 2021-01-13 19:08 | PHYS DOC ---
Past History Past Medical History: Hypertension Past Surgical History: No Surgical History Alcohol Use: None Drug Use: None General Adult EDM: Chief Complaint: GENERALIZED BODY ACHES HPI: HPI: 89-year-old female presents via EMS with pain. The patient and her family are concerned she has breast cancer but no diagnosis has been made. She has felt a mass in the right breast. She has been declining in health for some time. She hardly ever eats. She complains of nondescript pain for which she is treated with Tylenol at home. This does seem to help somewhat according to family. The patient does not tell me any particular place of pain. She complains of pain every time we try to adjust or remove her. She does not provide any more significant history to me. Review of Systems: Review of Systems: Constitutional: Denies fever or chills Eyes: Denies change in visual acuity HENT: Denies nasal congestion or sore throat Respiratory: Denies cough or shortness of breath Cardiovascular: Denies chest pain GI: Abdominal pain, diarrhea : Denies dysuria Musculoskeletal: Generalized musculoskeletal pain Integument: Denies rash Neurologic: Denies headache Endocrine: Lymphatic: Denies swollen glands Psychiatric: Unable to assess Allergies: Allergies: Allergies Coded Allergies Type Severity Reaction Last Updated Verified No Known Drug Allergies 08/16/18 No Physical Exam: PE: Constitutional: Well developed, thin, frail no acute distress. [] HENT: Normocephalic, atraumatic, bilateral external ears normal, oropharynx dry, no oral exudates, nose normal. [] Eyes: PERRLA, EOMI, conjunctiva normal, no discharge. [] Neck: Normal range of motion, no tenderness, supple, no stridor. [] Cardiovascular: Heart rate regular rhythm, no murmur [] Lungs & Thorax: Bilateral breath sounds clear to auscultation [] Abdomen: Bowel sounds normal, soft, generalized tenderness without guarding, no masses, no pulsatile masses. [] Skin: Warm, dry, no erythema, no rash. [] Back: No point tenderness [] Extremities: Pain with movement [] Neurologic: Alert, normal motor function, normal sensory function, no focal deficits noted. [] Psychologic: Affect blunted, judgement normal, mood depressed. [] EKG: EKG: [] Radiology/Procedures: Radiology/Procedures: [] Impressions: EXAM: AP View of the chest DATE: 01/13/2021 6:26 PM INDICATION: Reason: Weakness, congestion / Spl. Instructions: / History: COMPARISON: No Prior FINDINGS: The heart is not enlarged. Mediastinal and hilar contours are normal. Parenchymal opacities in the right hilum as well as the right lung base likely atelectasis. No consolidation. No pleural effusion or pneumothorax. IMPRESSION: 1. Right perihilar and lung base airspace opacities should be further assessed by CT chest. EXAM: Supine AP view of the abdomen DATE: 01/13/2021 6:26 PM INDICATION: Reason: Weakness, congestion / Spl. Instructions: / History: COMPARISON: No Prior FINDINGS: No abnormal small or large bowel dilatation. Moderate to large volume colonic stool content. No abnormal soft tissue mass effect. No suspicious calcifications are seen. Evaluation for free intraperitoneal gas is limited on this supine exam. Aortic calcifications are seen. Decreased bone mineral density. IMPRESSION: 1. No evidence for bowel obstruction. 2. Moderate to large volume colonic stool content. Electronically signed by: Ismael Cerna MD (01/13/2021 7:40 PM) [facility] DICTATED AND SIGNED BY: ISMAEL CERNA MD DATE: 01/13/211937 CC: ALEXANDRA BECKER DO; ADE MARTINEZ MD ~MTH0 0 Heart Score: C/O Chest Pain: N/A Risk Factors: Risk Factors: DM, Current or recent (<one month) smoker, HTN, HLP, family history of CAD, obesity. Risk Scores: Score 0 - 3: 2.5% MACE over next 6 weeks - Discharge Home Score 4 - 6: 20.3% MACE over next 6 weeks - Admit for Clinical Observation Score 7 - 10: 72.7% MACE over next 6 weeks - Early Invasive Strategies Course & Med Decision Making: Course & Med Decision Making Pertinent Labs and Imaging studies reviewed. (See chart for details) The patient's chest x-ray shows likely right-sided mass. KUB shows moderate to large volume stool. I suspect this constipation is noticed a portion of the patient's discomfort. Have ordered 2 mg of morphine. She was given Zofran by EMS. I will admit the patient to the hospital for further evaluation of her chest mass and constipation. The patient has an elevated sodium of 160. She also has an elevated creatinine and troponin. See labs for more details. I started the patient on half NS. Her EKG does not show ST elevation. I spoke with the patient's family and they would like the patient admitted to this facility. They have agreed that DNR status would be the best for the patient. I spoke with Dr. Leblanc the hospitalist and he has accepted the patient for admission. He has requested to be switched to D5 water at 100 an hour. [] Dragon Disclaimer: Dragon Disclaimer: This electronic medical record was generated, in whole or in part, using a voice recognition dictation system. Departure Departure: Impression: Primary Impression: Hypernatremia Additional Impressions: Elevated troponin Elevated serum creatinine Chest mass Constipation Disposition: ADMITTED INPATIENT Admitting Physician: Ilya Leblanc Condition: STABLE Referrals: ADE MARTINEZ MD (PCP) ALEXANDRA BECKER DO Jan 13, 2021 19:08
--- NOTE | 2021-01-13 19:42 | RAD ---
EXAM: AP View of the chest DATE: 01/13/2021 6:26 PM INDICATION: Reason: Weakness, congestion / Spl. Instructions: / History: COMPARISON: No Prior FINDINGS: The heart is not enlarged. Mediastinal and hilar contours are normal. Parenchymal opacities in the right hilum as well as the right lung base likely atelectasis. No consol idation. No pleural effusion or pneumothorax. IMPRESSION: 1. Right perihilar and lung base airspace opacities should be further assessed by CT chest. EXAM: Supine AP view of the abdomen DATE: 01/13/2021 6:26 PM INDICATION: Reason: Weakness, congestion / Spl. Instructions: / History: COMPARISON: No Prior FINDINGS: No abnormal small or large bowel dilatation. Moderate to large volume colonic stool content. No abn ormal soft tissue mass effect. No suspicious calcifications are seen. Evaluation for free intraperi toneal gas is limited on this supine exam. Aortic calcifications are seen. Decreased bone mineral den sity. IMPRESSION: 1. No evidence for bowel obstruction. 2. Moderate to large volume colonic stool content. Electronically signed by: Ismael Putnam MD (01/13/2021 7:40 PM) [facility]
[2021-01-13] MEDS ORDERED: MORPHINE SULFATE 2 MG/ML DISP.SYRIN. IV ONE (19:45)
[2021-01-13 19:51] LABS: BASO # 0.1 x10^3/uL (0.0-0.2); BASO % 1 % (0-3); EOS % 0 % (0-3); HEMOGLOBIN 8.7 g/dL (12.0-15.5); LYMPH # 0.8 x10^3/uL (1.0-4.8); LYMPH % 9 % (24-48); MEAN CORPUSCULAR HEMOGLOBIN 32 pg (25-35); MEAN CORPUSCULAR HGB CONC 31 g/dL (31-37); MEAN CORPUSCULAR VOLUME 103 fL (79-100); MONO # 0.6 x10^3/uL (0.0-1.1); MONO % 7 % (0-9); NEUT % 83 % (31-73); PLATELET COUNT 220 x10^3/uL (140-400); RED BLOOD COUNT 2.72 x10^6/uL (3.50-5.40); RED CELL DISTRIBUTION WIDTH 16.4 % (11.5-14.5); WHITE BLOOD COUNT 8.4 x10^3/uL (4.0-11.0)
[2021-01-13 20:22] LABS: ALBUMIN 3.2 g/dL (3.4-5.0); ALBUMIN/GLOBULIN RATIO 0.9 (1.0-1.7); CALCIUM 9.6 mg/dL (8.5-10.1); CREATININE 1.7 mg/dL (0.6-1.0); GFR 34.2; POTASSIUM 3.7 mmol/L (3.5-5.1); TOTAL BILIRUBIN 3.3 mg/dL (0.2-1.0); TOTAL PROTEIN 6.9 g/dL (6.4-8.2)
[2021-01-13] MEDS ORDERED: IV 1/2 NORMAL SALINE 1,000 ML IV ONE (20:30)
[2021-01-13 21:28] LABS: BILIRUBIN,URINE SMALL (NEG); CLARITY,URINE CLEAR; COLOR,URINE YELLOW; GLUCOSE,URINE NEG (NEG); NITRITE,URINE NEG (NEG); UROBILINOGEN,URINE 0.2 mg/dL (0.2 mg/dL)
[2021-01-13] MEDS ORDERED: ONDANSETRON PF 4 MG/2 ML VIAL. IVP PRN (21:30)
[2021-01-13 21:32] LABS: AMMONIUM BIURATE PRESENT /HPF; BACTERIA,URINE 0 /HPF (0-FEW); SQUAMOUS EPITHELIAL CELL,UR FEW /LPF; WBC,URINE 0 /HPF (0-4)
[2021-01-13] MEDS ORDERED: IV DEXTROSE 5% 1,000 ML IV ONE (21:45)
--- NOTE | 2021-01-13 22:45 | EKG ---
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
[2021-01-13 23:13] VITALS: BP 98/57
--- NOTE | 2021-01-13 23:23 | NUR ---
PT ADMITTED TO [facility] VIA EMS ACCOMPANIED BY ER STAFF. PT WAS TOTAL ASSIST X2 FROM GURNEY TO BED. PT ALERT TO SELF ONLY. PT POOR HISTORIAN. PT DPOA CALLED FOR HOME MED LIST AND MEDICAL HISTORY. DPOA COULD ONLY STATE PTS PHARMACY. DPOA GIVEN PT STATUS UPDATE AND NUMBER TO NURSES STATION. PT IS RESTING COMFORTABLY IN BED W/ BED ALARM ON.
[2021-01-14 04:03] LABS: CALCIUM 9.1 mg/dL (8.5-10.1); CREATININE 1.7 mg/dL (0.6-1.0); GFR 34.2; POTASSIUM 3.9 mmol/L (3.5-5.1)
[2021-01-14 07:43] VITALS: BP 109/46
--- NOTE | 2021-01-14 08:45 | HP ---
ADMIT DATE: 01/14/2021 ATTENDING PHYSICIAN: Ilya Leblanc MD CHIEF COMPLAINT: Weakness. HISTORY OF PRESENT ILLNESS: The patient is an 89-year-old female admitted through the ED brought in by her son. She has been declined. She is contracted, nonambulatory and profoundly demented. Supposedly, she has a diagnosis of breast cancer. There is an obvious fungating hard lesion in the lateral portion of the right breast. This is cancer until proven otherwise. She has not sought any treatment. She is profoundly cachectic. She is dehydrated. Her serum sodium was 162 mEq per liter with a concomitant chloride of 122. She is not on a diuretic. She was given IV fluids in the ED. The patient is demented. The son is not here right now. Much of the history is obtained from the chart. PAST MEDICAL HISTORY: Significant for the generalized dementia, generalized debilitation. Her son has been caring for her. She is hi and nonambulatory. Her appetite has been poor. She has protein calorie malnutrition. CURRENT MEDICATIONS: Unknown. ALLERGIES: She has no recorded drug allergies. Her medicines at home include Aricept, pravastatin, diazepam and amlodipine. I suspect there is a history of hypertension and chronic constipation. FAMILY HISTORY: Unobtainable. REVIEW OF SYSTEMS: Unobtainable. PHYSICAL EXAMINATION: GENERAL: When I saw her, this is a cachectic elderly female, who is very demented. VITAL SIGNS: Initial vital signs showed a blood pressure 111/51, pulse is 70 and regular. She was afebrile, oxygen saturation 96% on room air. HEENT: Head is without trauma. Pupils are reactive. Sclerae is nonicteric. The oropharynx is clear. Mucous membranes dry. NECK: Supple, no bruits. LUNGS: Shallow respirations. CARDIOVASCULAR: Showed distant heart tones. No gallops. BREAST: There is a hard fungating lesion on the lateral portion of the right breast. I did not palpate any axillary lymph nodes. ABDOMEN: Soft. EXTREMITIES: Shows contracture. There is no edema. NEUROLOGIC: Profoundly demented. SKIN: Warm and dry. PERTINENT LABORATORY STUDIES: Sodium 162 mEq with a chloride of 122. Cardiac enzymes also positive troponins. Her is 8.7 g/dL. Chest x-ray showed COPD changes without any acute infiltrates. ASSESSMENT: 1. An 89-year-old female with dehydration. She has a free water deficit with concomitant hypernatremia. 2. Profound dementia. 3. 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 4. Anemia of chronic disease. 5. Elevated troponins due to stress demand ischemia. 6. Chronic kidney disease. 7. Protein calorie malnutrition, severe. 8. Profound debilitation. PLAN: 1. Admit to the inpatient unit. 2. I will try to contact the son, who has been a caregiver. This patient is actively dying and she should go to hospice. 3. Gentle IV hydration. 4. Follow up serial chemistry. 5. Comfort measures. She is a DNR per advanced directives and that just was obtained last night. ASHLEY DR: Yonny TID: [id number] CC: Hilda Lopez
[2021-01-14 11:37] VITALS: BP 81/47
[2021-01-14] MEDS: MORPHINE SULFATE 20 MG/ML CONC SOLUTION. SL PRN ×2 (15:05→19:38)
[2021-01-14 16:48] VITALS: BP 120/66
[2021-01-14] MEDS ORDERED: PHENYLEPH/MINERAL OIL/PETROLAT RECTAL OINTMENT TUBE. RC PRN (17:30)
[2021-01-15] MEDS: MORPHINE SULFATE 20 MG/ML CONC SOLUTION. SL PRN ×2 (05:58→08:56)
[2021-01-15 08:32] VITALS: BP 111/62
[2021-01-15] MEDS ORDERED: MORPHINE SULFATE 20 MG/ML CONC SOLUTION. SL PRN (10:00)
[2021-01-15] MEDS ORDERED: fentaNYL 50MCG/HR 1 PATCH PATCH TD SCH (10:00)
--- NOTE | 2021-01-15 14:50 | NUR ---
PATIENT IS DISCHARGED HOME WITH HOSPICE CARE. DISCHARGE INSTRUCTION AND MEDICATIONS REVIEWED, FAMILY MEMBER VERBALIZED UNDERSTANDING. PATIENT LEFT ROOM VIA EMS ACCOMP BY FAMILY MEMBER.
--- NOTE | 2021-01-15 19:46 | DS ---
DATE OF DISCHARGE: 01/15/2021 ATTENDING PHYSICIAN: Dr. Leblanc. DATE OF ADMISSION:. January 2021 FINAL DISCHARGE DIAGNOSES: 1. Profound dehydration and decline. 2. Concomitant hypernatremia and hyperchloremia. 3. 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 4. Dementia with debilitation. 5. Elevated troponins due to stress demand ischemia. 6. Chronic kidney disease. 7. Protein-calorie malnutrition, severe. HISTORY AND PHYSICAL: The patient is an 89-year-old female cared for at home by her family, she is in decline. She is demented. She was profoundly dehydrated with a serum admission sodium of 160 mEq/L. She was admitted for comfort measures. She is now a DNR. PHYSICAL EXAMINATION: Please see my dictated note. PERTINENT LABORATORY AND X-RAY STUDIES: Hemoglobin on admission was 8.7 g/dL, white count 8400. Sodium 160 mEq, chloride 120, potassium 3.9 mEq. Cardiac enzymes 0.14, 0.15 and 0.15 respectively. Serum creatinine level is 1.7 mg % with a BUN of 87. COURSE IN THE HOSPITAL: The patient was admitted. She was given comfort measures with pain meds, IV hydration; however, she pulled 3 IVs out and we were unable to maintain an intravenous line. We consulted the hospice team and they have agreed to see the patient to keep her comfortable during the final days. Pain was then managed with oral Roxanol as well as her Duragesic patch. On the third hospital day, arrangements were made for the patient to return home. She will have hospice care. In addition, I recommended Roxanol 10 mg p.o. every 2 hours p.r.n. pain or air hunger and finally a Duragesic 50 mcg patch. Her prognosis is terminal. She was discharged in stable condition with a definite plan for end of life care with our hospice team. Total discharge time spent 39 minutes. RENALDO/LUCIANO DR: RENALDO/ninoska TID: [id number] CC: ADE MARTINEZ MD
== END 2021-01-15 14:50 | disposition hospice, home (50) | DRG 640 ==
LOC: ER 18:22 → 1 SOUTH 21:30
PROVIDERS: ADMIT Hospitalist; ATTEND Hospitalist
DX: E86.0 Dehydration (principal); E43 Unspecified severe protein-calorie malnutrition; I24.8 Other forms of acute ischemic heart disease; R64 Cachexia; Z68.1 Body mass index [BMI] 19.9 or less, adult; E87.0 Hyperosmolality and hypernatremia; K59.00 Constipation, unspecified; F03.90 Unspecified dementia, unspecified severity, without behavioral disturbance, psychotic disturbance, mood disturbance, and anxiety; D63.8 Anemia in other chronic diseases classified elsewhere; I12.9 Hypertensive chronic kidney disease with stage 1 through stage 4 chronic kidney disease, or unspecified chronic kidney disease; N18.9 Chronic kidney disease, unspecified; R53.81 Other malaise; Z66 Do not resuscitate; Z51.5 Encounter for palliative care; E87.8 Other disorders of electrolyte and fluid balance, not elsewhere classified; N63.10 Unspecified lump in the right breast, unspecified quadrant
CPT/HCPCS: 36415; 71045; 74018; 80048; 80053; 81001; 83880; 84484; 85025; 93005; 96361; 96374; J2270; J7030; 99285-25